=== PATIENT | female | born 1975 | race Caucasian/White ===

== ENCOUNTER 2018-02-16 12:49 | Emergency (ER) | payer SELFPAY ==
[2018-02-16 14:07] LABS: #Basophils 0.1 thou/uL (0.0-0.2); #Eosinphils 0.2 thou/uL (0.0-0.7); #Monocytes 0.5 thou/uL (0.11-0.59); #Neutrophils 5.1 thou/uL (1.40-6.50); %Eosinophils 3.1 % (0.0-10.0); %Lymphocytes 25.7 % (21.0-51.0); %Monocytes 5.8 % (0.0-10.0); %Neutrophils 64.5 % (42.0-75.0); Hemoglobin 12.7 g/dL (12.0-16.0); Mean Corpuscular Hemoglobin 25.3 pg (27.0-31.0); Mean Corpuscular Volume 79.1 fL (78.0-98.0); Mean Platelet Volume 11.2 fL (7.4-10.4); Platelet Count 254 thou/uL (130-400); Red Blood Cell (RBC) Count 5.03 mill/uL (4.20-5.40)
[2018-02-16 14:26] LABS: BHCG - Serum Negative (NEGATIVE); Pregs Control Background? CLEAR/WHITE (CLR/WHITE); Pregs Control Bar Appear? YES (CONTROL BAR)
[2018-02-16 14:28] LABS: ALT (SGPT) 19 U/L (8-55); AST (SGOT) 13 U/L (5-34); Albumin 4.5 g/dL (3.5-5.0); Alkaline Phosphatase 55 U/L (40-150); Anion Gap 12 mmol/L (10-20); BUN (Urea Nitrogen) 9 mg/dL (7.0-18.7); Bilirubin, Total 0.4 mg/dL (0.2-1.2); Calc. Creatinine Clearance 0 mL/min (70-130); Calcium 9.3 mg/dL (7.8-10.44); Carbon Dioxide 23 mmol/L (22-29); Chloride 106 mmol/L (98-107); Estimated GFR-MDRD 79; Globulin 3.4 g/dL (2.4-3.5); Glucose 100 mg/dL (70-105); Potassium 3.7 mmol/L (3.5-5.1); Protein, Total 7.9 g/dL (6.0-8.3); Sodium 137 mmol/L (136-145)
[2018-02-16] MEDS ORDERED: cloNIDine 0.1 MG TAB ONE (14:30)
[2018-02-16 14:44] LABS: CKMB 0.8 ng/mL (0-6.6); Troponin I Less than 0.010 ng/mL (< 0.028)
[2018-02-16] MEDS ORDERED: Metoprolol Tartrate 50 MG TAB ONE (15:43)
[2018-02-16] MEDS ORDERED: hydrALAZINE 20 MG/ML VIAL ONE (17:02)
--- NOTE | 2018-02-19 12:27 | EKG ---
Test Reason : HTN Blood Pressure : / mmHG Vent. Rate : 084 BPM Atrial Rate : 084 BPM P-R Int : 174 ms QRS Dur : 100 ms QT Int : 384 ms P-R-T Axes : 037 119 015 degrees QTc Int : 453 ms Normal sinus rhythm Possible Left atrial enlargement Right axis deviation Incomplete right bundle branch block Possible Anterior infarct , age undetermined Abnormal ECG Confirmed by AJ GUADARRAMA ([id number]), medical transcription editor JIM LOOMIS ([id number]) on 02/19/2018 12:26:48 PM Referred By: THIERRY Confirmed By:AJ GUADARRAMA
== END 2018-02-16 17:41 | disposition home or self-care (01) ==
LOC: ERS 12:49
DX: I10 Essential (primary) hypertension (principal); R11.0 Nausea
CPT/HCPCS: 36415; 80053; 82553; 84484; 84703; 85025; 93005; 96374; J0360